=== PATIENT | male | born 1990 | race Caucasian/White ===

== ENCOUNTER → 2018-10-31 11:24 | Outpatient (CLI) | payer OTHER, SELFPAY ==
--- NOTE | 2018-10-31 | DI.MRI.S_ITS ---
PROCEDURE: MR SHOULDER RT W CON INDICATIONS: PAIN IN RIGHT SHOULDER TECHNIQUE: After the administration of 12 mL of dilute intra-articular Gadolinium contrast, oblique coronal T1 and T2 spin echo with fat saturation, oblique sagittal T1 spin echo with and without fat saturation, oblique sagittal T2 fast spin echo with fat saturation, axial T1 spin echo with fat saturation through the shoulder. COMPARISON: [facility], MR, SHOULDER WITH CONTRAST, 06/11/2014, 14:14. FINDINGS: Image quality: Excellent. Rotator cuff: Tendinosis and low-grade bursal surface partial-thickness tear involving distal supraspinatus near its insertion the humeral head is seen extending to muscular tendinous junction. Infraspinatus and subscapularis tendons are intact. No rotator cuff muscle atrophy on sagittal images. Bones and bursae: No bone marrow contusions or fractures. No acromioclavicular joint degeneration. The acromion demonstrates conventional anatomy, without an os acromiale. Capsule and soft tissues: The labrum and glenohumeral ligaments appear intact. The long head of the biceps tendon demonstrates normal location and morphology. The rotator interval appears normal, without fibrosis. The coracohumeral ligament is of normal thickness. No intra-articular bodies. IMPRESSION: 1. No MR evidence of focal labral tear. 2. Tendinosis and low-grade bursal surface partial-thickness tear involving distal supraspinatus near its insertion the humeral head. 3. No marrow signal abnormality. No fracture or dislocation. Dictated by: Onesimo Salcido M.D. on 10/31/2018 at 14:32 Approved by: Onesimo Salcido M.D. on 10/31/2018 at 14:35
--- NOTE | 2018-10-31 | DI.RAD.S_ITS ---
PROCEDURE: FL SHOULDER INJECTION MR/CT RT INDICATIONS: PAIN IN RIGHT SHOULDER TECHNIQUE: The indications, alternatives, benefits, risks, and complications of the procedure were explained to the patient. Written informed consent was obtained and placed in the chart. The shoulder was examined fluoroscopically and a site for needle placement chosen for entry into the glenohumeral joint from an anterior approach. The skin was prepped and draped in a sterile fashion, and 1% lidocaine infiltrated from skin down to joint capsule. A spinal needle was inserted into the glenohumeral joint, and a small amount of iodinated contrast media injected to confirm intra-articular placement of the needle tip. This was followed by approximately 12 mL dilute solution of a gadolinium containing MR contrast agent. The needle was removed and a dressing was applied. The patient was given postprocedural instructions and sent to the MR suite for MR imaging. FINDINGS: A single fluoroscopic spot image demonstrates intra-articular location of injected iodinated contrast. IMPRESSION: Successful fluoroscopically guided administration of dilute Gadolinium solution into the shoulder joint for MR arthrogram. Dictated by: Saud Poole M.D. on 10/31/2018 at 14:18 Approved by: Saud Poole M.D. on 10/31/2018 at 14:18
== END ==
PROVIDERS: Visit Provider Family Medicine
DX: M25.511 Pain in right shoulder (principal); M75.111 Incomplete rotator cuff tear or rupture of right shoulder, not specified as traumatic
CPT/HCPCS: 23350; 73222; 77002

== ENCOUNTER 2018-12-14 07:45 | Day surgery (SDC) | payer OTHER, SELFPAY ==
[2018-12-04 10:25] VITALS: BMI 31.1
[2018-12-14] VITALS (10 sets, daily range): BP systolic 100–124; BP diastolic 68–79; PULSE 57–77; RESP 14–21; TEMP 36.2–36.7; O2SAT 96–99; BMI 29.9
[2018-12-14] MEDS: LACTATED RINGERS 1,000 ML 42 ML IV ×2 (08:48→12:51)
--- NOTE | 2018-12-14 10:28 | PM.PREOP ---
Pre-operative Note Interval Note History & Physical reviewed/Exam performed by Physician: Yes Changes to H&P: No
[2018-12-14] MEDS: fentaNYL 100 MCG/2 ML INJ 50 MCG IV ×2 (10:56→14:23)
[2018-12-14] MEDS: MIDAZOLAM 2 MG/2 ML VIAL IV (10:56)
[2018-12-14] MEDS: CEFAZOLIN 2 GM/100 ML FROZ.PIGGY IV (11:08)
--- NOTE | 2018-12-14 11:14 | SUR.PREOP ---
Block start time 1054. Monitoring initiated and maintained throughout procedure. Pt placed on 2 L O2 via NC and medications given per anesthesiologist instructions. Patient remained stable throughout procedure, no adverse reactions noted. Block end time 1104. Pt awake and talking to anesthesiologist; pt taken directly to OR.
--- NOTE | 2018-12-14 11:35 | SUR.OPER ---
Lateral on padded OR bed with allen bag positioner, head on pillow, gel axillary roll in place, bottom leg bent with gel pad under knee to foot, upper leg straight and supported with pillows. Operative arm secured in shoulder positioning suspension device. non-operative arm secured on padded arm board. Safety belt at hip, tape over blanket securing lower legs.
[2018-12-14] MEDS: BUPIVACAINE 0.5% W/ EPI (PF) VIAL 30 ML INJ (11:43)
[2018-12-14] MEDS: SODIUM CHLORIDE IRRIG SOLUTION 3,000 ML, EPINEPHrine 1 MG IRR (11:44)
--- NOTE | 2018-12-14 13:10 | P.OP_ITS ---
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 He initially did very well but then caught 1 of his children with his arm and felt his shoulder slide. Since that time he has had multiple episodes of recurrent instability. after discussion the risks benefits and alternatives he has requested revision anterior capsular reconstruction. We have reviewed his 3 dimensional imaging and there does not appear to be significant bone loss either from the glenoid or Hill-Sachs. Risks discussed included but were not limited to: Potential need for further revision, incomplete stabilization, infection, stiffness, nerve damage, deep venous thrombosis pulmonary embolism, stroke, coma, permanent paralysis and . Surgeon: Dylon Hernández Shellfish Checker: Mckenna Lara Click Yes if Unassisted: No Anesthesia Type: General, Peripheral nerve block and Local Operative Notes Findings: 1. Normal glenohumeral cartilage 2. Recurrent Bankart lesion with healing to the anterior glenoid on the face rather than the rim 3. Inflammation of the anterior capsule obscuring the anterior ligaments 4. Intact biceps and biceps anchor 5. Intact subscapularis 6. Intact supraspinatus 7. Intact infraspinatus 8. Shallow, non engaging Hill-Sachs lesion. 9. Exam under anesthesia notable for no loss of range of motion and excessive anterior translation with translation to the rim on the right and trace translation anteriorly on the left side. Posterior and inferior translation were actually similar to the opposite shoulder. Closure Type: primary Specimen(s): none sent Prosthetic devices, grafts, tissues, transplants, or devices: Three Arthrex Knotless SutureTak anchors were implanted. Two were opened and not used, one broke and was removed, and one failed to deploy correctly. Applied: implant(s) Estimated Blood Loss (mL): 10 Blood products transfused: none Procedure in detail: Patient was seen in the preoperative area where he identified his right shoulder as the operative site and this was marked with my initials. He received preoperative antibiotics and underwent the induction of an interscalene block for postoperative pain control. He was taken to the o perating room placed on the operating room table in a supine position where he underwent induction with general anesthetic. Shoulders were then examined under anesthesia with the findings given above. He was then repositioned the left lateral decubitus position with an axillary roll and padding for all pressure points. He was stabilized in this position using the allen bag and adhesive tape. Before prepping and draping a multimedia specialist-out was performed. The right arm was prepared from fingertips to the base neck with ChloraPrep in the usual fashion and draped through sterile drapes. The right arm was placed in 10 lb of balanced skin suspension. Subcutaneous landmarks were outlined on the skin with a marking pen and portal sites selected. The posterior portal was created and the arthroscope introduced in the glenohumeral joint. Diagnostic arthroscopy ensued with the result given above. Anterior superior portal was created and the elevator used to loosen the scarred tissue anteriorly. Several suture fragments from the prior repair were removed. The capsule labral sleeve was mobilized to the point that the subscapularis muscle fiber was visible in the joint. 3 anchors were used anteriorly placed sequentially. The inferior anchor was placed at the 5 o'clock position, the next above was placed in approximately the 3:30 position and the final anchor placed in the 2:30 position. The capsulolabral sleeve was mobilized both medial-lateral and superiorly to tighten the shoulder joint. We placed the arthroscope in the anterior portal and re- evaluated the Hill Sachs lesion. The capsule and then tightened quite significantly, the Hill-Sachs was very shallow and it did not appear that it would engage. I therefore elected not to perform a remplissage procedure. At this point all arthroscopic equipment was removed. The wounds were closed with 4 0 Monocryl and Steri-Strips. Additional Marcaine was injected in the subacromial space and the subcutaneous tissues for postoperative pain control. The wounds were dressed with sterile 4x4s, an ABD and an adhesive dressing. The arm was placed in a sling and he was transported to the recovery room in good condition having tolerated the procedure well. Complications: none Condition: stable Disposition: PACU Plan for aftercare: The patient will be maintained on a standard arthroscopic Bankart procedure protocol. He will be discharged later today.
--- NOTE | 2018-12-14 13:37 | SUR.PHASEI ---
Pt arrived to PACU with oral airway in place. VSS, IV patent, drsg C/D/I. Ice to R shoulder, radial pulse strong, fingers warm with capillary refill <2
--- NOTE | 2018-12-14 13:41 | PM.PROC.1 ---
Procedures Date/Time Date of procedure: 12/14/18 Time of procedure: 10:54 Nerve Block Time out performed: Yes Local anesthetic used: other (Local - <1ml Lido 1%; Block - 10ml Ropivacaine 0.5% + 5ml Lido 2% w epi 1:100K) Location of anesthetic used: right brachial plexus - interscalene (nerve stim and U/S guidance) Amount of anesthesia used (mL): 15 Nerve blocks: brachial plexus (Right) Procedure successful: Yes Patient tolerated procedure: well and no complications Complications: none Additional comments: See anesthesia record for more details.
[2018-12-14] MEDS: OXYCODONE IR 5 MG TABLET PO (14:01)
[2018-12-14] MEDS: hydrOXYzine pamoate 25 MG CAPSULE PO (14:23)
--- NOTE | 2018-12-14 14:28 | SUR.PHASEII ---
1423 IV and Po Rx given for pain 12/19. Continuous monitor put on prior to Rx. HR 82, Sat 97% Friend has gone to fill prescriptions. Stable. Skin warm and dry, resp even and regular. Report given.
--- NOTE | 2018-12-14 14:38 | SUR.PHASEI ---
Pt 1348 vitals were inadvertently cleared from the monitor. Pts vitals remained stable through Phase I from the time of arrival @ 1303 until transferred at 1410
== END 2018-12-14 15:13 | disposition home or self-care (01) ==
PROVIDERS: Visit Provider Orthopaedic Surgery
PROC: 0RQJ4ZZ Repair Right Shoulder Joint, Percutaneous Endoscopic Approach (ICD-10-PCS; CPT 29807; principal; 2018-12-14 10:15)
DX: M25.311 Other instability, right shoulder (principal); G89.18 Other acute postprocedural pain; F17.210 Nicotine dependence, cigarettes, uncomplicated
CPT/HCPCS: 29806; 64415; 64450; J0171; J0690; J1100; J2250; J2405; J2704; J2795; J3010